=== PATIENT | female | born 1930 | race Caucasian/White ===

== ENCOUNTER 2017-07-31 13:54 | Outpatient (CLI) | payer MEDICARE, BC | END 2017-07-31 13:55 | disposition home or self-care (01) | LOC: BICMAMMO 13:54 | PROVIDERS: ATTEND Internal Medicine | DX: Z12.31 Encounter for screening mammogram for malignant neoplasm of breast (principal) | CPT/HCPCS: 77063; 77067 ==

== ENCOUNTER 2018-08-03 09:50 | Outpatient (CLI) | payer MEDICARE, BC ==
--- NOTE | 2018-08-03 11:16 | MMO ---
Bilateral MAMMO Bilat Screen [facility]DI+[facility]. CLINICAL HISTORY: Patient is 88 years old and is seen for screening. The patient has no family history of breast cancer. The patient has no personal history of cancer. VIEWS: The views performed were: bilateral craniocaudal with tomosynthesis and bilateral mediolateral oblique with tomosynthesis. FILMS COMPARED: The present examination has been compared to prior imaging studies performed at [facility] on 07/31/2017, at [facility] on 07/29/2016, and at [facility] on 07/01/2013, 07/04/2014 and 07/10/2015. MAMMOGRAM FINDINGS: Finding 1: There are stable benign appearing calcifications seen in both breasts. Finding 2: There is a stable oval mass with circumscribed margins seen in the lower region of the left breast. There are no suspicious masses, suspicious calcifications, or new areas of architectural distortion. IMPRESSION: THERE IS NO MAMMOGRAPHIC EVIDENCE OF MALIGNANCY. A ROUTINE FOLLOW-UP MAMMOGRAM IN 1 YEAR IS RECOMMENDED. THE RESULTS OF THIS EXAM WERE SENT TO THE PATIENT. ACR BI-RADS Category 2 - Benign finding MAMMOGRAPHY NOTE: 1. A negative mammogram report should not delay a biopsy if a dominant of clinically suspicious mass is present. 2. Approximately 10% to 15% of breast cancers are not detected by mammography. 3. Adenosis and dense breasts may obscure an underlying neoplasm.
== END 2018-08-03 09:51 | disposition home or self-care (01) ==
LOC: BICMAMMO 09:50
PROVIDERS: ATTEND Internal Medicine
DX: Z12.31 Encounter for screening mammogram for malignant neoplasm of breast (principal)
CPT/HCPCS: 77063; 77067

== ENCOUNTER 2019-01-14 15:04 | Outpatient (CLI) | payer MEDICARE, BC ==
--- NOTE | 2019-01-14 15:42 | ULT ---
EXAM: Left lower extremity venous Doppler US HISTORY: left lower extremity edema and pain FINDINGS: Grayscale, color-flow, Doppler evaluation, spectral analysis of the left lower extremity venous struc tures is performed with 2-D imaging. The left common femoral, superficial femoral, popliteal, posterior tibial, proximal greater saphenous and profunda femoral veins are imaged. There is normal luminal compressibility, flow, and augmentation the visualized deep venous structures of the left lower extremity. IMPRESSION: No evidence of a deep vein thrombosis in the left lower extremity.
== END 2019-01-14 15:05 | disposition home or self-care (01) ==
LOC: ULT 15:04
PROVIDERS: ATTEND Orthopaedic Surgery
DX: M79.662 Pain in left lower leg (principal)

== ENCOUNTER 2019-06-15 13:52 | Emergency (ER) | payer MEDICARE, BC ==
--- NOTE | 2019-06-15 15:29 | CT ---
CT OF BRAIN PERFORMED WITHOUT CONTRAST ENHANCEMENT: HISTORY: Fell with head injury. COMPARISON: 04/25/2014 exam. FINDINGS: Some generalized ventricular and sulcal prominence. There is decreased attenuation of the periventri cular white matter consistent with chronic white matter change. No signs of intracerebral hemorrhage or extraaxial fluid collection. Mastoid air cells and visualized sinuses appear clear. IMPRESSION: No acute intracranial abnormalities. Chronic-appearing white matter change. POS: [facility]
== END 2019-06-15 15:35 | disposition home or self-care (01) ==
LOC: ERS 13:52
DX: S01.21XA Laceration without foreign body of nose, initial encounter (principal); S01.112A Laceration without foreign body of left eyelid and periocular area, initial encounter; I10 Essential (primary) hypertension; K21.9 Gastro-esophageal reflux disease without esophagitis; E78.5 Hyperlipidemia, unspecified; Z79.82 Long term (current) use of aspirin; Z79.899 Other long term (current) drug therapy; W19.XXXA Unspecified fall, initial encounter
CPT/HCPCS: 70450

== ENCOUNTER 2019-08-13 14:16 | Inpatient (IN) | payer MEDICARE, BC ==
[~2019-08-13 14:16] MED LIST: Iopamidol 370 76% 100 ML VIAL ONE
[2019-08-13] MEDS ORDERED: Acetaminophen 500 MG TAB ONE (14:39)
[2019-08-13 14:50] LABS: #Basophils 0.1 thou/uL (0.0-0.2); #Lymphocytes 0.9 thou/uL (1.20-3.40); #Monocytes 0.9 thou/uL (0.11-0.59); #Neutrophils 11.4 thou/uL (1.40-6.50); %Basophils 0.4 % (0.0-1.0); %Eosinophils 0.2 % (0.0-10.0); %Lymphocytes 6.8 % (21.0-51.0); %Monocytes 6.9 % (0.0-10.0); %Neutrophils 85.8 % (42.0-75.0); Hemoglobin 14.9 g/dL (12.0-16.0); Mean Corpuscular Hemoglobin 30.2 pg (27.0-31.0); Mean Corpuscular Volume 91.5 fL (78.0-98.0); Mean Platelet Volume 7.9 fL (7.4-10.4); Platelet Count 187 thou/uL (130-400); RBC Distribution Width 12.7 % (11.5-14.5); Red Blood Cell (RBC) Count 4.93 mill/uL (4.20-5.40); White Blood Cell (WBC) Count 13.3 thou/uL (4.8-10.8)
[2019-08-13 15:10] LABS: ALT (SGPT) 21 U/L (8-55); AST (SGOT) 22 U/L (5-34); Albumin 4.2 g/dL (3.4-4.8); Alkaline Phosphatase 66 U/L (40-110); Anion Gap 17 mmol/L (10-20); BUN (Urea Nitrogen) 14 mg/dL (9.8-20.1); Bilirubin, Total 0.7 mg/dL (0.2-1.2); Calc. Creatinine Clearance 0 mL/min (70-130); Calcium 9.2 mg/dL (7.8-10.44); Carbon Dioxide 22 mmol/L (23-31); Chloride 102 mmol/L (98-107); Estimated GFR-MDRD 34; Globulin 3.2 g/dL (2.4-3.5); Glucose 109 mg/dL (83-110); Potassium 4.2 mmol/L (3.5-5.1); Protein, Total 7.4 g/dL (6.0-8.3); Sodium 137 mmol/L (136-145)
[2019-08-13] MEDS ORDERED: Clindamycin/D5W 600 mg/50 ml Premix Bag ONE (15:21)
[2019-08-13] MEDS ORDERED: Diltiazem 125 MG/25 ML ONE ×2 (16:25→16:56)
--- NOTE | 2019-08-13 17:32 | CT ---
CT ABDOMEN AND PELVIS WITH IV CONTRAST: 08/13/19 HISTORY: 89-year-old female with redness, pain, swelling of the left hip. Concern for abscess. FINDINGS: There are dependent changes in the lung bases. A moderate sized hiatal hernia is present. The liver, spleen, pancreas, adrenal glands and kidneys are normal. No calcified gallstones are seen. No free air, free fluid or lymphadenopathy is seen in the abdomen or pelvis. The small bowel loops ar e not abnormally dilated. There is colonic diverticulosis without evidence of diverticulitis. A small right inguinal hernia is seen containing a loop of nonobstructing small bowel. The patient is status post appendectomy and hysterectomy. There are vascular calcifications without evidence of aneurysmal dilatation of the abdominal aorta. T here are degenerative changes of the spine. There is induration of the fat of the left anterior and medial proximal thigh with thickening of the skin in the left groin with a small focus of skin defect. No abnormally loculated fluid collection is seen to suggest abscess formation. IMPRESSION: 1. Hiatal hernia. 2. Colonic diverticulosis. 3. Small bowel loop containing right inguinal hernia without obstruction. 4. Cellulitis in the left proximal thigh and groin with small skin defect in the groin. No evide nce of abscess formation. POS: [facility]
[2019-08-13] MEDS ORDERED: Amiodarone 150 MG, Admixture Fee 1 EACH in Dextrose 5% in Water 100 ML IVPB SCH (18:15)
--- NOTE | 2019-08-13 18:32 | RAD ---
CHEST ONE VIEW: 08/13/19 HISTORY: Fever. COMPARISON: Chest radiograph from 2007. FINDINGS: There is fullness of the hilum bilaterally. Mild increased interstitial markings. No pneumothorax. No effusion. No acute osseous abnormality. IMPRESSION: Cardiomegaly with mild pulmonary venous congestion. POS: HOME
[2019-08-13 18:35] LABS: Bilirubin Negative (Negative); Blood, Urine Negative (Negative); Clarity Clear (Clear); Glucose, Urine (Dipstick) Normal (Negative); Leukocyte Negative Leu/uL (Negative); Nitrite Negative (Negative); Protein, Urine (Dipstick) Negative (Neg-Trace); Urobilinogen Normal mg/dL (Less than 2)
[2019-08-13] MEDS ORDERED: Ondansetron PF 4 MG/2 ML Vial IVP PRN (20:23)
[2019-08-13] MEDS ORDERED: Ondansetron ODT 4 MG TAB PO PRN (20:23)
[2019-08-13] MEDS ORDERED: Sodium Chloride 0.9% 1,000 ML IV SCH (20:23)
[2019-08-13] MEDS: Atorvastatin Calcium 20 MG TAB PO SCH (21:13)
[2019-08-13] MEDS: Amiodarone 450 MG, Admixture Fee 1 EACH in Dextrose 5% in Water 250 ML IVPB SCH (21:15)
--- NOTE | 2019-08-13 21:20 | HP ---
HISTORY OF PRESENT ILLNESS: Ms. Valdez is an 89-year-old female with a medical history of hyperlipidemia, who presents for left groin abscess. The patient had the groin abscess since Friday. Initially, it was a small dot, but it grew up to be the size of about 5 cm in diameter and started draining yesterday. She went to an [facility]gent [facility], who did a bedside I and D and gave her Bactrim. She was requested to return to the Urgent Center, which she did earlier today. The physician at Urgent Center was worried about worsening of the abscess and referred her to the ED. On encounter, the patient is lying comfortably in bed and has no complaints. Endorses swelling of both lower extremities for an unknown duration. Denies fatigue, chills, night sweats, heat intolerance, diarrhea, chest pain, palpitations, dyspnea, abdominal pain, constipation, blood loss, including hematochezia, hematemesis, melena and hematuria, recent sick contacts, recent travel, cardiac disease or lung disease history, diagnosis of arrhythmias in the past. The patient was initially in sinus rhythm in the ED, however, spontaneously converted to atrial fibrillation with RVR with heart rate in the 150s to 60s. Cardizem was attempted, but resulted in hypotension, so the patient was given fluids and was admitted for further management. REVIEW OF SYSTEMS: A full review of system was carried out and was negative with the exception of that mentioned in the HPI. PAST MEDICAL HISTORY: Hyperlipidemia. PAST SURGICAL HISTORY: The patient had surgery on the toes of the left foot, but she cannot recall what type of surgery, that was years ago. SOCIAL HISTORY: Lives alone. Ambulates and takes care of herself without assistance. Does not and never smoked, drunk, or did recreational drugs. MEDICATIONS: Per the patient, she is only taking medication for cholesterol. ALLERGIES: NO KNOWN DRUG ALLERGIES. PHYSICAL EXAMINATION: VITAL SIGNS: Patient's blood pressure was 128/98, pulse was 161, respiratory rate was 16, saturating 99% on room air. GENERAL: Lying comfortably in bed. Alert and oriented x3, somewhat fidgety. HEENT: No thyromegaly appreciated. No lymphadenopathy; submandibular, periauricular, or neck. Oral mucosa is moist. No oral lesions appreciated. HEART: Irregularly irregular rhythm. Tachycardic at 150s to 160s. No gallops appreciated. LUNGS: Clear to auscultation bilaterally. No wheezing, rales, or rhonchi. ABDOMEN: Moderately distended abdomen with no tenderness. No guarding. EXTREMITIES: Lower extremities, +2 pitting edema bilaterally, equal, up to knee level. Per the patient, does not know how long she has had it, but she has had it for a long time. NEUROLOGIC: Somewhat hyperactive. Alert and oriented x3. Strength 5/5 throughout upper and lower extremities. Cranial nerves 2-12 grossly intact. LABORATORY DATA: Labs and imaging were reviewed. EKG shows atrial fibrillation with RVR and poor R-wave progression in the precordial leads with nonspecific ST-segment abnormalities in the lateral leads. Abdominal-pelvis CT shows hiatal hernia, colonic diverticulosis, right inguinal hernia without obstruction and cellulitis in the left proximal thigh and groin. Chest x-ray showed cardiomegaly and mild pulmonary congestion. Troponin was negative x1. Urinalysis was negative. Creatinine was 1.47. It is unknown if the patient has SARITA or CKD. There was an elevated white count with neutrophilia. ASSESSMENT AND PLAN: Ms. Valdez is an 89-year-old female with a medical history of hyperlipidemia, who presents with a left groin purulent cellulitis and atrial fibrillation with rapid ventricular response. 1. Atrial fibrillation with rapid ventricular response. a. Unknown duration. Per patient, she never had an arrhythmia diagnosed. b. The patient went from sinus rhythm to atrial fibrillation in the ED. c. It was attempted to control the rate with Cardizem, but the patient became hypotensive and required fluids. d. Chest x-ray shows cardiomegaly with pulmonary congestion. On physical exam, there is lower extremity edema of unknown duration, but per the patient, she has had it chronically. e. EKG showing atrial fibrillation with rapid ventricular response with no signs of new ischemia. f. Troponin is negative. g. CHADS-VASc score is 3; Well's 1.5. h. Start the patient on amiodarone. i. IV fluids at 60 mL per hour. j. If patient develops worsening shortness of breath, repeat chest x-ray and stop the fluids. k. Enoxaparin 60 b.i.d. l. Cardiology consulted. Trend troponin, BNP, echocardiography. m. TSH. 2. Purulent cellulitis. a. The patient was started on Bactrim yesterday, but returned to the Urgent Care Center and they thought that the wound looked worse, so referred her to the ED. b. On exam, there was about a 5 cm packed abscess in the left groin, not actively draining with surrounding erythema and warmth. c. Start vancomycin, pharmacy to dose. d. Consulted General Surgery for additional I and D. Disposition prophylaxis. a. The patient requested only CPR, no intubation. The patient's son is the surrogate decision maker. b. Deep venous thrombosis prophylaxis. The patient is currently on therapeutic enoxaparin. c. Gastrointestinal prophylaxis, no indication. 4. Estimated length of stay, 2 midnights. Job ID: [id number] [facility]
[2019-08-13] MEDS: Enoxaparin Sodium 80 MG/0.8 ML SYRINGE SC SCH (21:59)
[2019-08-13] MEDS ORDERED: Vancomycin 1.5 GRAM/300 ML BAG 1.5 GM in Premix Bag 1 BAG IVPB SCH (22:00)
[2019-08-13 22:24] LABS: Troponin I 0.039 ng/mL (< 0.028)
[2019-08-14] MEDS: Acetaminophen 325 MG TAB PO PRN ×3 (01:14→22:29)
[2019-08-14 01:33] LABS: Troponin I 0.084 ng/mL (< 0.028)
[2019-08-14] MEDS: Amiodarone 450 MG, Admixture Fee 1 EACH in Dextrose 5% in Water 250 ML IVPB SCH ×2 (02:15→23:30)
[2019-08-14 03:44] LABS: #Lymphocytes 0.8 thou/uL (1.20-3.40); #Monocytes 0.7 thou/uL (0.11-0.59); #Neutrophils 7.4 thou/uL (1.40-6.50); %Basophils 0.5 % (0.0-1.0); %Eosinophils 0.4 % (0.0-10.0); %Monocytes 7.6 % (0.0-10.0); %Neutrophils 82.5 % (42.0-75.0); Hemoglobin 12.6 g/dL (12.0-16.0); Mean Corpuscular HGB CONC 34.1 g/dL (32.0-36.0); Mean Corpuscular Hemoglobin 31.1 pg (27.0-31.0); Mean Platelet Volume 8.1 fL (7.4-10.4); Platelet Count 165 thou/uL (130-400); RBC Distribution Width 12.8 % (11.5-14.5); Red Blood Cell (RBC) Count 4.06 mill/uL (4.20-5.40)
[2019-08-14 04:03] LABS: Anion Gap 14 mmol/L (10-20); BUN (Urea Nitrogen) 12 mg/dL (9.8-20.1); Calc. Creatinine Clearance 44 mL/min (70-130); Calcium 8.1 mg/dL (7.8-10.44); Carbon Dioxide 18 mmol/L (23-31); Chloride 109 mmol/L (98-107); Estimated GFR-MDRD 52; Glucose 103 mg/dL (83-110); Potassium 3.9 mmol/L (3.5-5.1); Sodium 137 mmol/L (136-145)
[2019-08-14] MEDS ORDERED: Enoxaparin Sodium 80 MG/0.8 ML SYRINGE SC SCH (09:00)
[2019-08-14] MEDS ORDERED: Lidocaine 1% w/Epinephrine 1:100K 20 ML VIAL ONE (09:37)
--- NOTE | 2019-08-14 10:51 | CON ---
DATE OF CONSULTATION: 08/14/2019 REASON FOR CONSULTATION: IMCU stay. HISTORY OF PRESENT ILLNESS: The patient is an 89-year-old female who came into the hospital yesterday short of breath, complaining of leg pain. She has a large area of cellulitis in her left inguinal fold. She was short of breath and in atrial fibrillation with rapid ventricular response. Her rate has now been controlled and her breathing is better. PAST MEDICAL HISTORY: Hyperlipidemia. PAST SURGICAL HISTORY: Foot surgery. SOCIAL HISTORY: Nonsmoker. Does not consume alcohol. Actually lives by herself. MEDICATIONS: She takes a cholesterol medication. ALLERGIES: NONE. REVIEW OF SYSTEMS: Twelve-point review of systems is otherwise negative. PHYSICAL EXAMINATION: VITAL SIGNS: Her temperature is 98.7, pulse 83, blood pressure 118/60, O2 saturation 95%. HEENT: Unremarkable. NECK: No adenopathy or JVD. LUNGS: Few crackles, both bases. CARDIAC: S1, S2, irregular. ABDOMEN: Soft and nontender. EXTREMITIES: She has an indurated area at medial portion, top of her left leg which has been open and is draining out some purulent material. LABORATORY DATA: White blood cell count 9, hematocrit 36.9, and platelet count 165. Sodium 137, potassium 3.9, chloride 109, CO2 of 18, BUN 12, creatinine 1.0, glucose 103. Chest x-ray shows vascular congestion. ASSESSMENT: 1. Atrial fibrillation with rapid ventricular response-now rate controlled. 2. Cellulitis. PLAN: 1. The patient is having a general surgical consultation. I will go ahead and add Ancef which should have better coverage and better penetration with vancomycin. 2. Atrial fibrillation management per Cardiology and Internal Medicine. Job ID: [id number]
[2019-08-14] MEDS: CEFAZOLIN 2 GM in Premix Bag 1 BAG IVPB SCH ×2 (13:19→18:15)
--- NOTE | 2019-08-14 14:24 | CON ---
DATE OF CONSULTATION: HISTORY OF PRESENT ILLNESS: The patient is an 89-year-old woman who presented for evaluation of an infected left groin and was noted to develop a rapid irregular heart rate. The patient has no previous cardiac history. She states that she was admitted to the hospital with a left groin abscess. The patient suddenly developed palpitations. She subsequently was treated medically. She denies any further palpitations. The patient is not having any chest discomfort. The patient has no known cardiac history. PAST MEDICAL HISTORY: Significant for: 1. Dyslipidemia. 2. GE reflux. PAST SURGICAL HISTORY: 1. She has had foot surgery. 2. Hysterectomy. 3. Appendectomy. SOCIAL HISTORY: Nonsmoker. FAMILY HISTORY: There is no strong family history of heart disease. MEDICATIONS ON ADMISSION: Included: 1. Crestor one tablet daily. 2. Aspirin 81 daily. REVIEW OF SYSTEMS: Ten-point system otherwise unremarkable. No history of easy bruising or bleeding or bright red blood per rectum. PHYSICAL EXAMINATION: GENERAL: Well-developed woman, in no acute distress. VITAL SIGNS: Blood pressure 141/76. NECK: No jugular venous distention. LUNGS: Clear to auscultation. HEART: Regular rate and rhythm. Normal S1 and S2. No murmurs. ABDOMEN: Nondistended. EXTREMITIES: Mild bilateral edema. VASCULAR: Radial pulses are 2+. LABORATORY DATA: White blood cell count 9.0, hemoglobin 12.6, hematocrit 36.9, and platelets 165. Sodium 137, potassium 3.9, chloride 109, bicarbonate 18, BUN 12, and creatinine 1.0. Troponin was 0.084. Her EKG revealed atrial fibrillation with a rapid ventricular response. IMPRESSION: 1. Paroxysmal atrial fibrillation. 2. Cellulitis of the left groin. 3. Dyslipidemia. 4. Gastroesophageal reflux. PLAN: This patient presented with paroxysmal atrial fibrillation. She converted with IV amiodarone after receiving Cardizem. From a cardiac standpoint, she has a CHADS-VASc score of 3 and will need to be on long-term anticoagulation. At this time, the patient is being treated with Lovenox. Would recommend the patient to switch from amiodarone to Multaq. We will follow this patient with you through her hospitalization. Job ID: [id number]
--- NOTE | 2019-08-14 14:39 | CON ---
DATE OF CONSULTATION: 08/14/2019 CHIEF COMPLAINT: Left groin abscess. HISTORY OF PRESENT ILLNESS: This is an 89-year-old female who had I and D as an outpatient a few days ago, lots of purulence was drained. She developed increased redness and hardness yesterday, was sent to this ER where CT scan showed significant cellulitis. She is admitted to the medical service. I have been consulted for definitive drainage. She is on blood thinner at home normally and received that last night. She notes no significant pain in the area. She has been afebrile. She has been wheezing since admission. MEDICAL HISTORY: Hyperlipidemia. SURGICAL HISTORY: Foot surgery. MEDICATIONS: Lipid medicine. ALLERGIES: NO KNOWN DRUG ALLERGIES. SOCIAL HISTORY: No smoking, alcohol, or other drugs. REVIEW OF SYSTEMS: Ten-system review of systems is otherwise negative except as described above. PHYSICAL EXAMINATION: HEENT: Sclerae are anicteric. Oropharynx clear. NECK: No lymphadenopathy. CHEST: Clear. HEART: AFib. ABDOMEN: Soft and nontender. EXTREMITIES: Left groin and upper leg reveals significant induration, small incision. No significant purulence. ASSESSMENT: 1. Left groin abscess. 2. Atrial fibrillation. PLAN: I and D of this left groin abscess will enlarge it under local anesthetic at the bedside to make packing easier. Risks, benefits, and alternatives discussed. She gives consent. We will do this today. Job ID: [id number]
--- NOTE | 2019-08-14 14:45 | OP ---
DATE OF PROCEDURE: 08/14/2019 PREOPERATIVE DIAGNOSIS: Left deep thigh abscess. POSTOPERATIVE DIAGNOSIS: Left deep thigh abscess. PROCEDURE PERFORMED: I and D of left deep thigh abscess. ANESTHESIA: Local. ESTIMATED BLOOD LOSS: Minimal. COMPLICATIONS: None. SPECIMENS: Cultures. DESCRIPTION OF PROCEDURE: The left groin/thigh was prepped and draped in a sterile fashion. Local anesthetic infiltrated around the previous open site. An elliptical incision to ellipse out the old incision and may get larger. All the loculations were broken up. The wound was irrigated and packed using wet-to-dry saline soaked gauze. There was some bleeding at the edges, but not significant. Sterile dressings were placed. The patient did well with the procedure. We will continue to follow with you. Job ID: [id number] [facility]
--- NOTE | 2019-08-14 14:51 | PDOC.HOSPP ---
- Subjective Encounter Date: 08/14/19 Subjective: Pain is controlled - Objective Vital Signs & Weight: Vital Signs (12 hours) Temp Pulse Pulse BP BP Pulse Ox 08/14/19 11:12 100.8 F H 08/14/19 10:10 95 105 H 143/72 H 164/76 H 08/14/19 07:58 98 08/14/19 07:16 98.7 F 08/14/19 04:00 99.4 F Weight Weight 155 lb 3.287 oz Most Recent Monitor Data Heart Rate from ECG 87 NIBP 141/76 NIBP BP-Mean 97 Respiration from ECG 23 SpO2 97 I&O: 08/13/19 08/14/19 08/15/19 06:59 06:59 06:59 Intake Total 1270 Balance 1270 Result Diagrams: 08/14/19 03:21 08/14/19 03:21 Hospitalist ROS - Medication Medications: Active Medications Generic Name Dose Route Start Last Admin Trade Name Freq PRN Reason Stop Dose Admin Acetaminophen 650 mg 08/14/19 01:11 08/14/19 01:14 Tylenol PO 650 mg Q6H PRN Administration Headache/Fever/MILD Pain 1-3 Atorvastatin Calcium 20 mg 08/13/19 21:00 08/13/19 21:13 Lipitor PO 20 mg HS GARCIA Administration Enoxaparin Sodium 70 mg 08/13/19 21:00 08/13/19 21:59 Lovenox SC 70 mg 2100 GARCIA Administration Amiodarone HCl 450 mg/ 259 mls @ 0 mls/hr 08/13/19 18:15 08/14/19 02:15 Miscellaneous Medication 1 IVPB 08/14/19 16:00 259 mls each/ Dextrose/Water INF GARCIA Administration Protocol As Directed Cefazolin Sodium/Dextrose 2 gm 50 mls @ 100 mls/hr 08/14/19 11:00 08/14/19 13 :19 / Device IVPB 50 mls 0300,1100,1900 GARCIA Administration Sodium Chloride 10 ml 08/14/19 09:00 08/14/19 13:20 Flush - Normal Saline IVF 10 ml Q12HR GARCIA Administration - Exam General Appearance: awake alert ENT: normocephalic atraumatic Neck: supple, no JVD Heart: RRR Respiratory: no tachypnea Gastrointestinal: soft Neurological: cranial nerve grossly intact, no focal deficits Hosp A/P (1) Cellulitis of groin Code(s): L03.314 - CELLULITIS OF GROIN Status: Acute (2) Afib Code(s): I48.91 - UNSPECIFIED ATRIAL FIBRILLATION Status: Acute - Plan Cellulitis and abscess of the groin area on the left. Continue IV antibiotics. For I&D possibly today. Follow surgical cultures.
[2019-08-14] MEDS: Dronedarone HCl 400 MG TAB PO SCH (15:16)
[2019-08-14] MEDS: Enoxaparin Sodium 80 MG/0.8 ML SYRINGE SC SCH ×2 (20:21→20:35)
[2019-08-14] MEDS: Atorvastatin Calcium 20 MG TAB PO SCH (20:21)
[2019-08-14 21:39] LABS: Vancomycin, Random 7.8 ug/mL (See Comment)
[2019-08-14] MEDS ORDERED: Vancomycin HCl 750 MG in Sodium Chloride 0.9% 250 ML 250 ML IVPB SCH (22:00)
[2019-08-14] MEDS: Vancomycin 1 GM in Premix Bag 1 BAG IVPB SCH (22:29)
[2019-08-14] MEDS ORDERED: Amiodarone 150 MG, Admixture Fee 1 EACH in Dextrose 5% in Water 100 ML IVPB SCH (23:30)
[2019-08-15] MEDS: CEFAZOLIN 2 GM in Premix Bag 1 BAG IVPB SCH ×3 (03:22→19:40)
[2019-08-15 04:07] LABS: Anion Gap 15 mmol/L (10-20); BUN (Urea Nitrogen) 10 mg/dL (9.8-20.1); Calc. Creatinine Clearance 52 mL/min (70-130); Calcium 8.4 mg/dL (7.8-10.44); Carbon Dioxide 15 mmol/L (23-31); Chloride 111 mmol/L (98-107); Estimated GFR-MDRD 63; Glucose 119 mg/dL (83-110); Potassium 4.6 mmol/L (3.5-5.1); Sodium 136 mmol/L (136-145)
[2019-08-15] MEDS ORDERED: Metoprolol Tartrate 5 MG/5 ML VIAL IVP SCH (05:30)
[2019-08-15] MEDS: Amiodarone 450 MG, Admixture Fee 1 EACH in Dextrose 5% in Water 250 ML IVPB SCH (06:09)
--- NOTE | 2019-08-15 09:16 | PDOC.GSPN ---
Surgery Progress Note: Subj - Subjective Patient reports: no new complaints Surgery Progress Note: Obj - Vital signs Vital signs: Vital Signs - Most Recent Temp Pulse Resp BP Pulse Ox 100.3 F H 95 143/72 H 96 08/15/19 07:20 08/14/19 10:10 08/14/19 10:10 08/15/19 07:40 - Physical Exam Wound: dressing clean,dry,intact Surgery Progress Note: Results - Labs Result Diagrams: 08/14/19 03:21 08/15/19 03:23 Lab results: Laboratory Results - last 24 hr 08/14/19 08/15/19 21:15 03:23 Sodium 136 Potassium 4.6 Chloride 111 H Carbon Dioxide 15 L Anion Gap 15 BUN 10 Creatinine 0.85 Estimated GFR (MDRD) 63 Glucose 119 H Calcium 8.4 Random Vancomycin 7.8 Surgery Progress Note: A/P - Problem (1) Cellulitis of groin Current Visit: Yes Code(s): L03.314 - CELLULITIS OF GROIN Status: Acute - Plan Plan: Groin abscess drained -wound care-home health for post DC dressing changes
[2019-08-15] MEDS: Dronedarone HCl 400 MG TAB PO SCH (09:33)
--- NOTE | 2019-08-15 11:16 | PRG ---
DATE OF SERVICE: 08/15/2019 SUBJECTIVE: The patient is doing reasonably well without complaints. OBJECTIVE: VITAL SIGNS: Temperature 100.3 with a T-max of 102.3, pulse 126, blood pressure 152/97. HEENT: Unremarkable. NECK: No adenopathy JVD. LUNGS: Clear. CARDIAC: S1 and S2. Regular. ABDOMEN: Soft. EXTREMITIES: No edema. LABORATORY DATA: Sodium 136, potassium 4.6, chloride 111, CO2 of 15, BUN 10, creatinine 0.8, glucose 119, anion gap is 15. White blood cell count was not done today. ASSESSMENT: Left groin abscess. PLAN: Continue antimicrobials. Job ID: [id number]
[2019-08-15 11:47] LABS: Hemoglobin 14.4 g/dL (12.0-16.0); Mean Corpuscular HGB CONC 33.5 g/dL (32.0-36.0); Mean Corpuscular Hemoglobin 30.3 pg (27.0-31.0); Mean Corpuscular Volume 90.4 fL (78.0-98.0); Mean Platelet Volume 8.2 fL (7.4-10.4); Platelet Count 159 thou/uL (130-400); RBC Distribution Width 12.9 % (11.5-14.5); Red Blood Cell (RBC) Count 4.75 mill/uL (4.20-5.40); White Blood Cell (WBC) Count 12.2 thou/uL (4.8-10.8)
[2019-08-15] MEDS ORDERED: Amiodarone 150 MG, Admixture Fee 1 EACH in Dextrose 5% in Water 100 ML IVPB SCH (12:00)
[2019-08-15 12:10] LABS: Lymphocytes 6 % (21-51); MDiff Complete? YES; Monocytes 9 % (0-10); Neutrophil 83 % (42-75); Platelet Morphology Comment Appears Adequate; Reactive Lymphocytes 2 % (0-10)
--- NOTE | 2019-08-15 13:07 | PDOC.HOSPP ---
- Subjective Encounter Date: 08/15/19 Subjective: No new complaints. Converted to afib w RVR this morning - Objective Vital Signs & Weight: Vital Signs (12 hours) Temp Pulse Ox 08/15/19 11:07 100.4 F H 08/15/19 07:40 96 08/15/19 07:20 100.3 F H 08/15/19 04:00 98.0 F 96 Weight Weight 155 lb 3.287 oz Most Recent Monitor Data Heart Rate from ECG 139 NIBP 161/81 NIBP BP-Mean 107 Respiration from ECG 31 SpO2 96 I&O: 08/14/19 08/15/19 08/16/19 06:59 06:59 06:59 Intake Total 1270 1570 Output Total 400 Balance 1270 1170 Result Diagrams: 08/15/19 11:38 08/15/19 03:23 Hospitalist ROS - Medication Medications: Active Medications Generic Name Dose Route Start Last Admin Trade Name Freq PRN Reason Stop Dose Admin Acetaminophen 650 mg 08/14/19 01:11 08/14/19 22:29 Tylenol PO 650 mg Q6H PRN Administration Headache/Fever/MILD Pain 1-3 Atorvastatin Calcium 20 mg 08/13/19 21:00 08/14/19 20:21 Lipitor PO 20 mg HS GARCIA Administration Dronedarone 400 mg 08/14/19 17:00 08/15/19 09:33 Multaq PO 400 mg BID-WM GARCIA Administration Enoxaparin Sodium 70 mg 08/13/19 21:00 08/14/19 20:35 Lovenox SC Not Given 2100 GARCIA Cefazolin Sodium/Dextrose 2 gm 50 mls @ 100 mls/hr 08/14/19 11:00 08/15/19 09 :33 / Device IVPB 50 mls 0300,1100,1900 GARCIA Administration Vancomycin HCl 1 gm/ Device 200 mls @ 200 mls/hr 08/14/19 22:00 08/14/19 22: 29 IVPB 200 mls Q24HR GARCIA Administration Amiodarone HCl 450 mg/ 259 mls @ 0 mls/hr 08/14/19 23:30 08/15/19 06:09 Miscellaneous Medication 1 IVPB 259 mls each/ Dextrose/Water INF GARCIA Administration Protocol As Directed Amiodarone HCl 150 mg/ 103 mls @ 618 mls/hr 08/15/19 12:00 08/15/19 12:32 Miscellaneous Medication 1 IVPB 08/15/19 14:00 103 mls each/ Dextrose/Water NOW GARCIA Administration Protocol Sodium Chloride 10 ml 08/14/19 09:00 08/15/19 09:33 Flush - Normal Saline IVF 10 ml Q12HR GARCIA Administration - Exam General Appearance: awake alert ENT: normocephalic atraumatic Neck: supple, no JVD Heart: RRR Respiratory: normal chest expansion, no tachypnea Neurological: cranial nerve grossly intact, no focal deficits Hosp A/P (1) Cellulitis of groin Code(s): L03.314 - CELLULITIS OF GROIN Status: Acute (2) Afib Code(s): I48.91 - UNSPECIFIED ATRIAL FIBRILLATION Status: Acute - Plan Cellulitis and abscess of the groin area on the left S/P I&D. Continue IV antibiotics. Follow surgical cultures. AFIB WITH RVR ON AMIODARONE DRIP now in sinus.
[2019-08-15] MEDS: Acetaminophen 325 MG TAB PO PRN (19:40)
[2019-08-15] MEDS: Enoxaparin Sodium 80 MG/0.8 ML SYRINGE SC SCH (21:29)
[2019-08-15] MEDS: Vancomycin 1 GM in Premix Bag 1 BAG IVPB SCH (21:29)
[2019-08-15] MEDS: Atorvastatin Calcium 20 MG TAB PO SCH (21:29)
[2019-08-15] MEDS: Amiodarone 200 MG TAB PO SCH (21:30)
[2019-08-16] MEDS: CEFAZOLIN 2 GM in Premix Bag 1 BAG IVPB SCH (04:54)
[2019-08-16 07:04] LABS: Band 7 % (5-11); Eosinophils 4 % (0-10); Lymphocytes 17 % (21-51); MDiff Complete? YES; Mean Corpuscular HGB CONC 34.5 g/dL (32.0-36.0); Mean Corpuscular Hemoglobin 31.2 pg (27.0-31.0); Mean Corpuscular Volume 90.5 fL (78.0-98.0); Mean Platelet Volume 8.7 fL (7.4-10.4); Monocytes 11 % (0-10); Neutrophil 60 % (42-75); Platelet Count 114 thou/uL (130-400); Platelet Morphology Comment Appears Decreased; RBC Distribution Width 12.9 % (11.5-14.5); White Blood Cell (WBC) Count 11.1 thou/uL (4.8-10.8)
[2019-08-16 07:26] LABS: Calcium 8.7 mg/dL (7.8-10.44); Chloride 110 mmol/L (98-107); Potassium 4.6 mmol/L (3.5-5.1); Sodium 137 mmol/L (136-145)
[2019-08-16 07:35] LABS: BUN (Urea Nitrogen) 11 mg/dL (9.8-20.1); Calc. Creatinine Clearance 54 mL/min (70-130); Carbon Dioxide 14 mmol/L (23-31); Estimated GFR-MDRD 66; Glucose 103 mg/dL (83-110)
--- NOTE | 2019-08-16 07:38 | PDOC.GSPN ---
Surgery Progress Note: Subj - Subjective Patient reports: no new complaints Surgery Progress Note: Obj - Vital signs Vital signs: Vital Signs - Most Recent Temp Pulse Resp BP Pulse Ox 97.5 F L 95 143/72 H 96 08/16/19 07:09 08/14/19 10:10 08/14/19 10:10 08/15/19 20:00 - Physical Exam Wound: dressing clean,dry,intact Surgery Progress Note: Results - Labs Result Diagrams: 08/16/19 06:36 08/16/19 06:36 Lab results: Laboratory Results - last 24 hr 08/16/19 08/16/19 06:36 06:36 WBC 11.1 H RBC 4.50 Hgb 14.0 Hct 40.7 MCV 90.5 MCH 31.2 H MCHC 34.5 RDW 12.9 Plt Count 114 L MPV 8.7 Neutrophils % (Manual) 60 Band Neuts % (Manual) 7 Lymphocytes % (Manual) 17 L Monocytes % (Manual) 11 H Eosinophils % (Manual) 4 Basophils % (Manual) 1 Plt Morphology Comment Appears Decreased L Sodium 137 Potassium 4.6 Chloride 110 H Carbon Dioxide 14 L BUN 11 Creatinine 0.82 Estimated GFR (MDRD) 66 Glucose 103 Calcium 8.7 Surgery Progress Note: A/P - Problem (1) Cellulitis of groin Current Visit: Yes Code(s): L03.314 - CELLULITIS OF GROIN Status: Acute - Plan Plan: Home health for wound care
[2019-08-16 08:16] LABS: Anion Gap 18 mmol/L (10-20)
[2019-08-16] MEDS: Amiodarone 200 MG TAB PO SCH ×3 (09:09→20:19)
[2019-08-16] MEDS ORDERED: Furosemide 20 MG/2 ML VIAL SLOW IVP SCH (10:00)
--- NOTE | 2019-08-16 11:22 | RAD ---
CHEST 1 VIEW: Date: 08/16/2019 HISTORY: Hypoxia. COMPARISON: Radiograph dated 08/13/2019. FINDINGS: Pulmonary edema is slightly improved. Small effusions. No pneumothorax. No acute osseous abnormality. IMPRESSION: Mild interval improvement of pulmonary edema. POS: HOME
--- NOTE | 2019-08-16 11:31 | EKG ---
Test Reason : ROUTINE Blood Pressure : / mmHG Vent. Rate : 082 BPM Atrial Rate : 082 BPM P-R Int : 126 ms QRS Dur : 084 ms QT Int : 352 ms P-R-T Axes : 043 007 059 degrees QTc Int : 411 ms Normal sinus rhythm Nonspecific T wave abnormality Abnormal ECG Confirmed by ATILIO KU ([id number]) on 08/16/2019 11:31:34 AM Referred By: Surjit DON Confirmed By:ATILIO KU
[2019-08-16] MEDS ORDERED: Digoxin 0.5 MG/2 ML AMP SLOW IVP SCH (13:45)
[2019-08-16] MEDS: Digoxin 0.5 MG/2 ML AMP SLOW IVP SCH ×2 (13:53→15:22)
--- NOTE | 2019-08-16 14:13 | PDOC.HOSPP ---
- Subjective Encounter Date: 08/16/19 Subjective: The patient was seen and examined. She is sitting in wheelchair at this morning. Appears to be in mild shortness of breath. She is saturating well on room air. She was in sinus rhythm this morning and then converted to A. fib. - Objective Vital Signs & Weight: Vital Signs (12 hours) Temp Pulse Pulse BP BP Pulse Ox Pulse Ox 08/16/19 11:14 97.5 F L 08/16/19 09:22 117 H 103 H 175/87 H 153/82 H 98 08/16/19 07:39 96 08/16/19 07:09 97.5 F L 08/16/19 04:00 98.4 F Pulse Ox 08/16/19 11:14 08/16/19 09:22 99 08/16/19 07:39 08/16/19 07:09 08/16/19 04:00 Weight Admit Weight 155 lb 3.287 oz Weight 155 lb 3.287 oz Most Recent Monitor Data Heart Rate from ECG 107 NIBP 172/89 NIBP BP-Mean 116 Respiration from ECG 24 SpO2 92 I&O: 08/15/19 08/16/19 08/17/19 06:59 06:59 06:59 Intake Total 1570 1520 Output Total 400 900 Balance 1170 620 Result Diagrams: 08/16/19 06:36 08/16/19 06:36 Hospitalist ROS - Medication Medications: Active Medications Generic Name Dose Route Start Last Admin Trade Name Freq PRN Reason Stop Dose Admin Acetaminophen 650 mg 08/14/19 01:11 08/15/19 19:40 Tylenol PO 650 mg Q6H PRN Administration Headache/Fever/MILD Pain 1-3 Amiodarone HCl 400 mg 08/15/19 21:00 08/16/19 09:09 Cordarone PO 400 mg TID GARCIA Administration Atorvastatin Calcium 20 mg 08/13/19 21:00 08/15/19 21:29 Lipitor PO 20 mg HS GARCIA Administration Digoxin 0.25 mg 08/16/19 13:30 08/16/19 13:53 Lanoxin SLOW IVP 08/16/19 15:29 0.25 mg 1330,1430 GARCIA Administration Enoxaparin Sodium 70 mg 08/13/19 21:00 08/15/19 21:29 Lovenox SC 70 mg 2100 GARCIA Administration Sodium Chloride 10 ml 08/14/19 09:00 08/16/19 09:10 Flush - Normal Saline IVF Not Given Q12HR GARCIA - Exam General Appearance: awake alert Neck: supple, no JVD Heart: RRR Respiratory: tachypneic Gastrointestinal: soft Neurological: cranial nerve grossly intact, no focal deficits Hosp A/P (1) Cellulitis of groin Code(s): L03.314 - CELLULITIS OF GROIN Status: Acute (2) Afib Code(s): I48.91 - UNSPECIFIED ATRIAL FIBRILLATION Status: Acute (3) Pulmonary edema Code(s): J81.1 - CHRONIC PULMONARY EDEMA Status: Acute - Plan Cellulitis and abscess of the groin area on the left S/P I&D. IV antibiotics converted to oral Bactrim and Augmentin. Now on oral amiodarone and digoxin. On Lovenox for anticoagulation. Chest x-ray revealed slightly improving pulmonary edema. Received 20 mg of IV Lasix today. Follow surgical cultures.
[2019-08-16] MEDS ORDERED: Digoxin 0.125 MG TAB PO SCH (15:30)
[2019-08-16] MEDS ORDERED: Amiodarone 150 MG, Admixture Fee 1 EACH in Dextrose 5% in Water 100 ML IVPB SCH (17:45)
[2019-08-16] MEDS: Atorvastatin Calcium 20 MG TAB PO SCH (20:19)
[2019-08-16] MEDS: Amoxicillin/Potassium Clav 875 MG TAB PO SCH (20:19)
[2019-08-16] MEDS: Enoxaparin Sodium 80 MG/0.8 ML SYRINGE SC SCH (20:20)
[2019-08-16] MEDS: Sulfameth/Trimethoprim DS 800-160mg TAB PO SCH (20:20)
[2019-08-17 04:06] LABS: Anion Gap 15 mmol/L (10-20); BUN (Urea Nitrogen) 13 mg/dL (9.8-20.1); Calc. Creatinine Clearance 63 mL/min (70-130); Calcium 8.9 mg/dL (7.8-10.44); Carbon Dioxide 23 mmol/L (23-31); Chloride 104 mmol/L (98-107); Estimated GFR-MDRD 79; Glucose 98 mg/dL (83-110); Potassium 3.6 mmol/L (3.5-5.1); Sodium 138 mmol/L (136-145)
[2019-08-17 04:16] LABS: Band 5 % (5-11); Hemoglobin 13.8 g/dL (12.0-16.0); Lymphocytes 10 % (21-51); MDiff Complete? YES; Mean Corpuscular HGB CONC 33.5 g/dL (32.0-36.0); Mean Corpuscular Hemoglobin 30.2 pg (27.0-31.0); Mean Corpuscular Volume 90.2 fL (78.0-98.0); Mean Platelet Volume 8.3 fL (7.4-10.4); Monocytes 6 % (0-10); Neutrophil 79 % (42-75); Platelet Count 174 thou/uL (130-400); Platelet Morphology Comment Appears Adequate; RBC Distribution Width 12.5 % (11.5-14.5); RBC Morphology Normal; Red Blood Cell (RBC) Count 4.55 mill/uL (4.20-5.40); White Blood Cell (WBC) Count 9.6 thou/uL (4.8-10.8)
[2019-08-17] MEDS ORDERED: Digoxin 0.125 MG TAB PO SCH (09:30)
[2019-08-17] MEDS ORDERED: Hydrochlorothiazide 25 MG TAB PO SCH (09:30)
[2019-08-17] MEDS: Amiodarone 200 MG TAB PO SCH ×3 (10:01→21:14)
[2019-08-17] MEDS: Digoxin 0.125 MG TAB PO SCH (10:11)
[2019-08-17] MEDS: Sulfameth/Trimethoprim DS 800-160mg TAB PO SCH ×2 (10:11→21:14)
[2019-08-17] MEDS: Lactinex Tablet PO SCH (10:13)
[2019-08-17] MEDS: Amoxicillin/Potassium Clav 875 MG TAB PO SCH ×2 (10:16→21:14)
[2019-08-17] MEDS ORDERED: Digoxin 0.5 MG/2 ML AMP SLOW IVP SCH (11:45)
[2019-08-17] MEDS: Acetaminophen 325 MG TAB PO PRN (15:33)
--- NOTE | 2019-08-17 17:08 | PDOC.HOSPP ---
- Subjective Encounter Date: 08/17/19 Subjective: The patient has no new complains. Rhythm is back to Afib with RVR. - Objective Vital Signs & Weight: Vital Signs (12 hours) Temp Pulse Pulse Pulse BP BP Pulse Ox 08/17/19 15:20 100.0 F H 08/17/19 14:50 96 93 155/79 H 179/97 H 08/17/19 11:52 157 H 08/17/19 11:20 98.0 F 08/17/19 10:12 90 08/17/19 10:11 90 08/17/19 08:01 95 08/17/19 07:15 98.5 F Pulse Ox Pulse Ox 08/17/19 15:20 08/17/19 14:50 97 96 08/17/19 11:52 08/17/19 11:20 08/17/19 10:12 08/17/19 10:11 08/17/19 08:01 08/17/19 07:15 Weight Admit Weight 155 lb 3.287 oz Weight 155 lb 3.287 oz Most Recent Monitor Data Heart Rate from ECG 97 NIBP 168/71 NIBP BP-Mean 103 Respiration from ECG 27 SpO2 98 I&O: 08/16/19 08/17/19 08/18/19 06:59 06:59 06:59 Intake Total 1520 1270 Output Total 900 2320 Balance 620 -1050 Result Diagrams: 08/17/19 03:08 08/17/19 03:08 Hospitalist ROS - Medication Medications: Active Medications Generic Name Dose Route Start Last Admin Trade Name Freq PRN Reason Stop Dose Admin Acetaminophen 650 mg 08/14/19 01:11 08/17/19 15:33 Tylenol PO 650 mg Q6H PRN Administration Headache/Fever/MILD Pain 1-3 Acidophilus 1 tab 08/17/19 09:00 08/17/19 10:13 Floranex PO 1 tab DAILY GARCIA Administration Amiodarone HCl 400 mg 08/15/19 21:00 08/17/19 15:32 Cordarone PO 400 mg TID GARCIA Administration Amoxicillin/Clavulanate Potassium 875 mg 08/16/19 21:00 08/17/19 10:16 Augmentin PO 875 mg Q12HR GARCIA Administration Atorvastatin Calcium 20 mg 08/13/19 21:00 08/16/19 20:19 Lipitor PO 20 mg HS GARCIA Administration Digoxin 0.125 mg 08/18/19 09:00 08/17/19 10:11 Lanoxin PO 0.125 mg QAM GARCIA Administration Enoxaparin Sodium 70 mg 08/13/19 21:00 08/16/19 20:20 Lovenox SC 70 mg 2100 GARCIA Administration Sodium Chloride 10 ml 08/14/19 09:00 08/17/19 10:11 Flush - Normal Saline IVF 10 ml Q12HR GARCIA Administration Trimethoprim/Sulfamethoxazole 1 tab 08/16/19 21:00 08/17/19 10:11 Bactrim Ds PO 1 tab BID GARCIA Administration - Exam General Appearance: awake alert ENT: normocephalic atraumatic Neck: supple, no JVD Heart - other findings: Irrigluarly irriguar rhythm Gastrointestinal: soft, non-tender, non-distended, normal bowel sounds Neurological: cranial nerve grossly intact, no focal deficits Psychiatric: normal affect, A&O x 3 Hosp A/P (1) Cellulitis of groin Code(s): L03.314 - CELLULITIS OF GROIN Status: Acute (2) Afib Code(s): I48.91 - UNSPECIFIED ATRIAL FIBRILLATION Status: Acute (3) Pulmonary edema Code(s): J81.1 - CHRONIC PULMONARY EDEMA Status: Acute - Plan Cellulitis and abscess of the groin area on the left S/P I&D. Continue oral Bactrim and Augmentin. Afib with RVR. On oral amiodarone and digoxin. On Lovenox for anticoagulation. EP consulted. Chest x-ray revealed slightly improving pulmonary edema. Received lasix yesterday. SOB improving.
[2019-08-17] MEDS: Enoxaparin Sodium 80 MG/0.8 ML SYRINGE SC SCH (21:14)
[2019-08-17] MEDS: Atorvastatin Calcium 20 MG TAB PO SCH (21:14)
[2019-08-18 03:59] LABS: Band 11 % (5-11); Eosinophils 1 % (0-10); Hemoglobin 13.9 g/dL (12.0-16.0); Lymphocytes 6 % (21-51); MDiff Complete? YES; Mean Corpuscular HGB CONC 33.2 g/dL (32.0-36.0); Mean Corpuscular Hemoglobin 30.1 pg (27.0-31.0); Mean Corpuscular Volume 90.7 fL (78.0-98.0); Mean Platelet Volume 7.9 fL (7.4-10.4); Monocytes 7 % (0-10); Neutrophil 75 % (42-75); Platelet Count 209 thou/uL (130-400); Platelet Morphology Comment Appears Adequate; RBC Distribution Width 12.5 % (11.5-14.5); White Blood Cell (WBC) Count 7.3 thou/uL (4.8-10.8)
[2019-08-18 04:03] LABS: Anion Gap 15 mmol/L (10-20); BUN (Urea Nitrogen) 13 mg/dL (9.8-20.1); Calc. Creatinine Clearance 56 mL/min (70-130); Calcium 8.9 mg/dL (7.8-10.44); Carbon Dioxide 24 mmol/L (23-31); Chloride 101 mmol/L (98-107); Estimated GFR-MDRD 70; Glucose 97 mg/dL (83-110); Potassium 3.8 mmol/L (3.5-5.1); Sodium 136 mmol/L (136-145)
[2019-08-18] MEDS: Amiodarone 200 MG TAB PO SCH ×3 (09:14→21:12)
[2019-08-18] MEDS: Hydrochlorothiazide 25 MG TAB PO SCH (09:14)
[2019-08-18] MEDS: Amoxicillin/Potassium Clav 875 MG TAB PO SCH (09:14)
[2019-08-18] MEDS: Lactinex Tablet PO SCH (09:15)
[2019-08-18] MEDS: Acetaminophen 325 MG TAB PO PRN ×2 (09:16→20:04)
[2019-08-18] MEDS: Clindamycin 150 MG CAP PO SCH ×3 (11:42→23:58)
--- NOTE | 2019-08-18 15:58 | PDOC.HOSPP ---
- Objective Vital Signs & Weight: Vital Signs (12 hours) Temp Pulse Pulse BP BP Pulse Ox 08/18/19 15:23 97.5 F L 08/18/19 11:15 98.6 F 08/18/19 10:43 85 81 148/71 H 141/64 H 08/18/19 07:24 96 08/18/19 07:07 100.2 F H 08/18/19 04:00 99.0 F Weight Admit Weight 155 lb 3.287 oz Weight 147 lb 9.6 oz Most Recent Monitor Data Heart Rate from ECG 69 NIBP 170/70 NIBP BP-Mean 103 Respiration from ECG 22 SpO2 95 I&O: 08/17/19 08/18/19 08/19/19 06:59 06:59 06:59 Intake Total 1270 1697 Output Total 2320 550 Balance -1050 1147 Result Diagrams: 08/18/19 03:11 08/18/19 03:11 Hospitalist ROS - Review of Systems Constitutional: reports: fever - Medication Medications: Active Medications Generic Name Dose Route Start Last Admin Trade Name Freq PRN Reason Stop Dose Admin Acetaminophen 650 mg 08/14/19 01:11 08/18/19 09:16 Tylenol PO 650 mg Q6H PRN Administration Headache/Fever/MILD Pain 1-3 Acidophilus 1 tab 08/17/19 09:00 08/18/19 09:15 Floranex PO 1 tab DAILY GARCIA Administration Amiodarone HCl 400 mg 08/15/19 21:00 08/18/19 14:34 Cordarone PO 400 mg TID GARCIA Administration Atorvastatin Calcium 20 mg 08/13/19 21:00 08/17/19 21:14 Lipitor PO 20 mg HS GARCIA Administration Clindamycin HCl 300 mg 08/18/19 12:00 08/18/19 11:42 Cleocin PO 300 mg Q6HR GARCIA Administration Digoxin 0.125 mg 08/18/19 09:00 08/17/19 10:11 Lanoxin PO 0.125 mg QAM GARCIA Administration Hydrochlorothiazide 25 mg 08/18/19 09:00 08/18/19 09:14 Hydrochlorothiazide PO 25 mg DAILY GARCIA Administration Metoprolol Succinate 25 mg 08/18/19 09:00 08/18/19 09:59 Toprol Xl PO 25 mg BID GARCIA Administration Sodium Chloride 10 ml 08/14/19 09:00 08/18/19 09:15 Flush - Normal Saline IVF 10 ml Q12HR GARCIA Administration - Exam General Appearance: awake alert Eye: PERRL Neck: supple Heart: RRR Respiratory: normal chest expansion, no tachypnea Gastrointestinal: soft, non-tender, non-distended, normal bowel sounds Hosp A/P (1) Cellulitis of groin Code(s): L03.314 - CELLULITIS OF GROIN Status: Acute (2) Afib Code(s): I48.91 - UNSPECIFIED ATRIAL FIBRILLATION Status: Acute (3) Pulmonary edema Code(s): J81.1 - CHRONIC PULMONARY EDEMA Status: Acute - Plan Cellulitis and abscess of the groin area on the left S/P I&D. She was febrile today. Wound CX dhows MRSA. Change antibiotics to clindamycin. Pt complaining of diarrhea. Check C. Diff. Afib with RVR, now in sinus rhythm. On oral amiodarone and digoxin. On Lovenox for anticoagulation. SOB improving.
--- NOTE | 2019-08-18 16:44 | PRG ---
DATE OF SERVICE: 08/18/2019 This is an electrophysiology followup note for Norma Vadlez. SUBJECTIVE: Ms. Valdez seems to be doing well. Continues to be asymptomatic. Her atrial fibrillation episodes have not recurred since yesterday. OBJECTIVE DATA: VITAL SIGNS: Blood pressure is 170/70, heart rate 69, respirations is 22, temperature 97.5 degrees Fahrenheit. GENERAL: Alert and oriented woman, in no apparent distress. NECK: Supple. Jugular veins not distended. CHEST: Coarse. No crackles. HEART: Sounds are regular to rate and rhythm. No murmur or gallop. ABDOMEN: Benign. Bowel sounds positive. EXTREMITIES: Lower extremities without edema, clubbing, or cyanosis. ASSESSMENT AND PLAN: Mrs. Valdez is a pleasant 89-year-old woman with history of hypertension only, no prior atrial arrhythmias, but noted to have paroxysmal atrial fibrillation on tele monitor. She was started on amiodarone by Dr. Zavala and that seems to have suppressed the rhythm now without recurrence over 24 hours. At this point, I agree with continued p.o. amiodarone loading, which could be decreased on discharge and also close followup will be necessary to avoid excessive suppression of heart rate and titration of her current medication will be necessary. I would likely stop digoxin on discharge if she maintains sinus rhythm. She should also be considered for oral anticoagulation hence elevated CHADS- VASc score, switching to Multaq as an outpatient could be a good option as well. Thank you again for letting me to participate in the care of this patient. Job ID: [id number] [facility]
--- NOTE | 2019-08-18 17:26 | CON ---
DATE OF CONSULTATION: 08/17/2019 HISTORY OF PRESENT ILLNESS: I am seeing Ms. 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 Her problems are; 1. Paroxysmal atrial fibrillation with rapid ventricular rate. a. Now on IV, then p.o. amiodarone taper as well as IV to p.o. digoxin. b. Minimally symptomatic. 2. Current admission with lower extremity inguinal abscess, requiring incision and drainage. 3. Preserved LVEF and left atrial size, diastolic dysfunction, mild TR only by 2D echo on 08/14/2019. 4. History of hypertension. ALLERGIES: NONE NOTED. MEDICATIONS: At home included; 1. Tylenol. 2. Floranex. 3. Cordarone 400 mg three times a day. 4. Lipitor 20 mg p.o. at bedtime. 5. Clindamycin q. 6 hours. 6. Lanoxin 0.125 mg p.o. q.a.m. 7. Lovenox. 8. Hydrochlorothiazide. 9. Zofran. At home, the patient was only on Lipitor, cholecalciferol, and aspirin. SUBJECTIVE: Ms. Valdez seems to be doing fair. She came in with left groin abscess, which was opened up and drained. She seems to be doing well from that standpoint. Infectious signs are resolving. She denies dizziness or loss of consciousness. Does not pass out. On occasion, she has mild palpitations with more rapid heart beats, but that is how she states she feels her atrial fibrillation episodes. While on telemetry, she was noted to have rapid atrial fibrillation spells and Dr. Zavala evaluated this lady. She was started on IV amiodarone, which was switched to p.o., but due to recurrence, multiple re-bolusing of the amiodarone was performed with 150 mg dose. Currently back in sinus rhythm after another episode yesterday. She has no PND, orthopnea, or lower extremity edema. She has fluid overload. She has no angina. No fever, chills, or cough. At this point, she denies any further bleeding. No stroke-like symptoms, and rest of 12-point system otherwise unremarkable. PAST HISTORY: As above. Also includes hyperlipidemia. SOCIAL HISTORY: The patient denies smoking, EtOH, or drug abuse. She lives alone. FAMILY HISTORY: Not contributory. OBJECTIVE DATA: VITAL SIGNS: Blood pressure is 155/79, heart rate 96, respiration is 12. The patient is afebrile. GENERAL: This is an elderly lady, in no apparent distress. NECK: Supple. Jugular veins not distended. CHEST: Coarse without crackles. HEART: Sounds are regular to rate and rhythm. No murmur or gallop. ABDOMEN: Benign. Bowel sounds positive. EXTREMITIES: Lower extremity without edema, clubbing, or cyanosis. The incision site with bandages in the left groin. SKIN: Without rash. NEUROLOGIC: The patient is nonfocal. MUSCULOSKELETAL: No joint swelling or deformity. DATABASE: EKG is reviewed, on 08/13/2019, reveals atrial fibrillation with rapid rates at 146 beats per minute, narrow QRS is seen with 90 millisecond duration, QTc is [address]-T changes only seen. LABORATORY DATA: White cell count today is 9.6, decreasing from 13.3 earlier; hemoglobin 13.8; platelet count is 174. The sodium is 138, potassium 3.6, BUN is 13, creatinine 0.7. BNP 167 on admission. Chest x-ray from admission reveals mild pulmonary venous congestion only. ASSESSMENT AND PLAN: Ms. Valdez is a very pleasant 89-year-old woman with prior history of hypertension, hyperlipidemia, presenting with left groin abscess, which required surgery. Now on recovery, while on telemetry, she developed episodes of atrial fibrillation with rapid rates. The atrial fibrillation is minimally symptomatic. On further questioning, she may have had mild palpitations in the past as well, but she has never been told that she has atrial fibrillation. IV amiodarone was initiated, but required re-bolusing after switching to p.o. due to recurrences. She had recurrence yesterday with rapid rates in 120s and 130s, but now back in sinus rhythm. Currently, rates are reasonably controlled. My plan is; 1. Regarding her paroxysmal atrial fibrillation, at this point, I agree with impression with Dr. Zavala, his choice of amiodarone. This clearly could be switched to Multaq once she is rate controlled as an outpatient as well. Should she remains asymptomatic, we could contemplate rate controlling strategies for her as well. I would hold off for invasive intervention until she becomes symptomatic from this arrhythmia. 2. She has a CHADS-VASc score with her age, gender, hypertension at 4, we will recommend oral anticoagulation once surgically feasible on discharge. 3. Hypertension, suboptimal control. May benefit with addition of beta blockers for improving rate control as well. The above was communicated to Dr. Zavala as well. Thank you again for allowing me to participate in the care of this patient. We will follow with you. Job ID: [id number] MTDD
[2019-08-18] MEDS: Sulfameth/Trimethoprim DS 800-160mg TAB PO SCH (19:42)
[2019-08-18] MEDS: Enoxaparin Sodium 80 MG/0.8 ML SYRINGE SC SCH (21:12)
[2019-08-18] MEDS: Atorvastatin Calcium 20 MG TAB PO SCH (21:12)
[2019-08-19 04:03] LABS: Band 3 % (5-11); Hemoglobin 13.3 g/dL (12.0-16.0); Lymphocytes 6 % (21-51); MDiff Complete? YES; Mean Corpuscular HGB CONC 32.9 g/dL (32.0-36.0); Mean Corpuscular Hemoglobin 29.8 pg (27.0-31.0); Mean Corpuscular Volume 90.6 fL (78.0-98.0); Mean Platelet Volume 7.9 fL (7.4-10.4); Monocytes 8 % (0-10); Neutrophil 83 % (42-75); Platelet Count 218 thou/uL (130-400); Platelet Morphology Comment Appears Adequate; RBC Distribution Width 12.2 % (11.5-14.5); RBC Morphology Normal; Red Blood Cell (RBC) Count 4.47 mill/uL (4.20-5.40); White Blood Cell (WBC) Count 6.9 thou/uL (4.8-10.8)
[2019-08-19 04:05] LABS: Anion Gap 15 mmol/L (10-20); BUN (Urea Nitrogen) 17 mg/dL (9.8-20.1); Calc. Creatinine Clearance 54 mL/min (70-130); Calcium 8.9 mg/dL (7.8-10.44); Carbon Dioxide 23 mmol/L (23-31); Chloride 99 mmol/L (98-107); Estimated GFR-MDRD 70; Glucose 103 mg/dL (83-110); Potassium 3.4 mmol/L (3.5-5.1); Sodium 134 mmol/L (136-145)
[2019-08-19 04:08] VITALS: BP 156/69
[2019-08-19] MEDS: Clindamycin 150 MG CAP PO SCH ×2 (05:48→11:50)
[2019-08-19] MEDS: Amiodarone 200 MG TAB PO SCH ×2 (09:47→13:35)
[2019-08-19] MEDS: Hydrochlorothiazide 25 MG TAB PO SCH (09:47)
[2019-08-19] MEDS: Digoxin 0.125 MG TAB PO SCH (09:47)
[2019-08-19] MEDS: Lactinex Tablet PO SCH (09:47)
[2019-08-19] MEDS: Enoxaparin Sodium 80 MG/0.8 ML SYRINGE SC SCH (09:48)
[2019-08-19] MEDS ORDERED: Potassium Chloride 20 MEQ TAB PO SCH (11:15)
[2019-08-19 11:19] VITALS: TEMP 99.1
[2019-08-19 14:36] VITALS: BMI 28.1
--- NOTE | 2019-08-20 01:17 | DIS ---
DATE OF ADMISSION: 08/13/2019 DATE OF DISCHARGE: 08/19/2019 DISCHARGE DIAGNOSES: 1. Cellulitis and abscess of the left groin. 2. Atrial fibrillation with rapid ventricular response. 3. Pulmonary edema. 4. Diarrhea. DISCHARGE MEDICATIONS: 1. Clindamycin 300 mg orally every 8 hours for 7 days. 2. Amiodarone 400 mg orally three times a day for 2 weeks, then two times a day thereafter. 3. Eliquis 2.5 mg orally twice daily. 4. Aspirin 81 mg orally daily. 5. Vitamin D3, two capsules 1000 units daily. 6. Hydrochlorothiazide 25 mg orally daily. 7. Potassium chloride 20 mEq orally daily. 8. Lactobacillus one tablet orally t.i.d. for 7 days. 9. Loperamide 2 mg orally as needed for loose stools up to 4 times a day. 10. Metoprolol succinate 50 mg orally twice daily. 11. Rosuvastatin 10 mg orally nightly. DISPOSITION: Home with home health. HISTORY OF PRESENT ILLNESS AND BRIEF HOSPITAL COURSE: The patient is an 89-year-old female with past medical history of hypertension and hyperlipidemia, who presented to the hospital with left groin pain, swelling, and tenderness. Ultrasound was performed revealing presence of an abscess. The patient underwent the I and D and was started on empiric IV antibiotics. Her culture results showed growth of MRSA, and her antibiotics were switched orally to clindamycin per sensitivity data. In the ED, the patient was found to be in atrial fibrillation with RVR, which was noted to her. This was controlled initially with diltiazem, which subsequently changed to amiodarone due to hypotension. The patient, however, kept bouncing back to atrial fibrillation with RVR, and digoxin was initiated. This has helped control her rate initially, but the patient returned to atrial fibrillation with RVR later in her hospital stay. EP was consulted and recommended adding metoprolol succinate, which helped control her rate. On the day of discharge, the patient does not have any signs of sepsis and appeared to be back to her baseline. She is in sinus rhythm. We will discharge the patient on amiodarone, metoprolol succinate, and Eliquis for primary prevention of embolic phenomena. 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 Zavala in 2 weeks. Job ID: [id number]
== END 2019-08-19 14:40 | disposition home health service (06) | DRG 579 ==
LOC: ERS 14:16 → IMCU/EMU 18:09
PROVIDERS: ADMIT Internal Medicine; ATTEND Internal Medicine
PROC: 0Y960ZZ Drainage of Left Inguinal Region, Open Approach (ICD-10-PCS; principal; 2019-08-14)
DX: L02.214 Cutaneous abscess of groin (principal); J81.0 Acute pulmonary edema; I48.0 Paroxysmal atrial fibrillation; L03.314 Cellulitis of groin; I95.9 Hypotension, unspecified; E78.5 Hyperlipidemia, unspecified; K21.9 Gastro-esophageal reflux disease without esophagitis; R19.7 Diarrhea, unspecified; B95.62 Methicillin resistant Staphylococcus aureus infection as the cause of diseases classified elsewhere; Z90.49 Acquired absence of other specified parts of digestive tract; Z90.710 Acquired absence of both cervix and uterus
CPT/HCPCS: 36415; 71045; 74177; 80048; 80053; 80202; 81003; 83605; 83880; 84443; 84484; 85007; 85025; 85027; 87040; 87070; 87077; 87186; 87205; 87324; 87449; 93005; 93010; 93306; 96361; 96365; 96367; 96375; 96376; J0282; J0690; J1160; J1650; J1940; J3370; J3490; J7070; Q9967

== ENCOUNTER 2019-09-09 11:38 | Outpatient (CLI) | payer MEDICARE, BC ==
--- NOTE | 2019-09-09 12:35 | MMO ---
Bilateral MAMMO Bilat Screen [facility]. CLINICAL HISTORY: Patient is 89 years old and is seen for screening. The patient has no family history of breast cancer. The patient has no personal history of cancer. VIEWS: The views performed were: bilateral craniocaudal with tomosynthesis and bilateral mediolateral oblique with tomosynthesis. FILMS COMPARED: The present examination has been compared to prior imaging studies performed at [facility] on 07/31/2017 and 08/03/2018, at [facility] on 07/29/2016, and at [facility] on 07/10/2015. This study has been interpreted with the assistance of computer-aided detection. MAMMOGRAM FINDINGS: There are scattered fibroglandular densities. Finding 1: There is a stable nodule seen in the left breast. Finding 2: There are stable benign appearing calcifications seen in both breasts. There are no suspicious masses, suspicious calcifications, or new areas of architectural distortion. IMPRESSION: THERE IS NO MAMMOGRAPHIC EVIDENCE OF MALIGNANCY. A ROUTINE FOLLOW-UP MAMMOGRAM IN 1 YEAR IS RECOMMENDED. THE RESULTS OF THIS EXAM WERE SENT TO THE PATIENT. ACR BI-RADS Category 2 - Benign finding MAMMOGRAPHY NOTE: 1. A negative mammogram report should not delay a biopsy if a dominant of clinically suspicious mass is present. 2. Approximately 10% to 15% of breast cancers are not detected by mammography. 3. Adenosis and dense breasts may obscure an underlying neoplasm. Reported by: LAURENT SIMMONS MD Electonically Signed: [id number]
== END 2019-09-09 11:39 | disposition home or self-care (01) ==
LOC: BICMAMMO 11:38
PROVIDERS: ATTEND Internal Medicine
DX: Z12.31 Encounter for screening mammogram for malignant neoplasm of breast (principal)
CPT/HCPCS: 77063; 77067

== ENCOUNTER 2020-02-26 11:52 | Emergency (ER) | payer MEDICARE, BC ==
[2020-02-26 12:50] LABS: #Eosinphils 0.1 thou/uL (0.0-0.7); #Lymphocytes 1.8 thou/uL (1.20-3.40); #Monocytes 0.6 thou/uL (0.11-0.59); #Neutrophils 4.2 thou/uL (1.40-6.50); %Basophils 0.4 % (0.0-1.0); %Eosinophils 1.9 % (0.0-10.0); %Lymphocytes 26.5 % (21.0-51.0); %Monocytes 8.6 % (0.0-10.0); %Neutrophils 62.6 % (42.0-75.0); Hemoglobin 15.8 g/dL (12.0-16.0); Mean Corpuscular HGB CONC 34.8 g/dL (32.0-36.0); Mean Corpuscular Hemoglobin 31.2 pg (27.0-31.0); Mean Corpuscular Volume 89.7 fL (78.0-98.0); Mean Platelet Volume 6.9 fL (7.4-10.4); Platelet Count 269 thou/uL (130-400); RBC Distribution Width 12.4 % (11.5-14.5); Red Blood Cell (RBC) Count 5.07 mill/uL (4.20-5.40); White Blood Cell (WBC) Count 6.7 thou/uL (4.8-10.8)
[2020-02-26 13:12] LABS: ALT (SGPT) 51 U/L (8-55); AST (SGOT) 35 U/L (5-34); Albumin 4.4 g/dL (3.4-4.8); Alkaline Phosphatase 61 U/L (40-110); Anion Gap 16 mmol/L (10-20); BUN (Urea Nitrogen) 18 mg/dL (9.8-20.1); Bilirubin, Total 0.5 mg/dL (0.2-1.2); Calc. Creatinine Clearance 0 mL/min (70-130); Calcium 9.7 mg/dL (7.8-10.44); Carbon Dioxide 26 mmol/L (23-31); Chloride 95 mmol/L (98-107); Estimated GFR-MDRD 50; Globulin 3.1 g/dL (2.4-3.5); Glucose 119 mg/dL (83-110); Protein, Total 7.5 g/dL (6.0-8.3); Sodium 133 mmol/L (136-145)
== END 2020-02-26 14:13 | disposition home or self-care (01) ==
LOC: ERS 11:52
DX: I10 Essential (primary) hypertension (principal); K21.9 Gastro-esophageal reflux disease without esophagitis; E78.5 Hyperlipidemia, unspecified; Z79.899 Other long term (current) drug therapy; Z79.82 Long term (current) use of aspirin; Z79.01 Long term (current) use of anticoagulants
CPT/HCPCS: 80053; 85025; 93005

== ENCOUNTER 2020-09-11 08:47 | Outpatient (CLI) | payer MEDICARE, BC | END 2020-09-11 08:48 | disposition home or self-care (01) | LOC: BICMAMMO 08:47 | PROVIDERS: ATTEND Internal Medicine | DX: Z12.31 Encounter for screening mammogram for malignant neoplasm of breast (principal); N64.89 Other specified disorders of breast | CPT/HCPCS: 77063; 77067 ==

== ENCOUNTER 2020-09-14 08:49 | Outpatient (CLI) | payer MEDICARE, BC | END 2020-09-14 08:50 | disposition home or self-care (01) | LOC: BICMAMMO 08:49 | PROVIDERS: ATTEND Internal Medicine | DX: R92.8 Other abnormal and inconclusive findings on diagnostic imaging of breast (principal) | CPT/HCPCS: 77065; G0279 ==

== ENCOUNTER 2022-01-10 13:35 | Outpatient (CLI) | payer MEDICARE, BC | END 2022-01-10 13:36 | disposition home or self-care (01) | LOC: BICMAMMO 13:35 | PROVIDERS: ATTEND Family Medicine | DX: Z12.31 Encounter for screening mammogram for malignant neoplasm of breast (principal) | CPT/HCPCS: 77063; 77067 ==